=== PATIENT | male | born 1970 | race Caucasian/White ===

== ENCOUNTER 2016-09-22 10:40 | Emergency (ER) | payer MEDICAID ==
[~2016-09-22] VITALS: Ht 185.4 cm; Wt 102.6 kg
[~2016-09-22 10:40] MED LIST: ATOR10TA PO; DULO60CA7; GABA-827 PO; GABA100C PO; HYDR25TA6 PO; INSU100C5 SQ-INSULIN; INSU100V12 SQ; INSU100V8 SQ; LISI-167 PO; LISI-170 PO; METF10002 PO; METF500T4; NOVALOG 70/30; QUET150T; QUET50TA5 PO
[2016-09-22] MEDS ORDERED: INSU100V8 SQ (11:53)
[2016-09-22] MEDS ORDERED: GABA600T2 PO (11:53)
[2016-09-22] MEDS ORDERED: HYDROmorphone 1 MG/ML, 1ML IM PRN (12:00)
[2016-09-22] MEDS ORDERED: HYDROmorphone 1 MG/ML, 1ML ONE (12:19)
[2016-09-22 12:39] LABS: BLOOD UREA NITROGEN 15 mg/dL (7-18)
[2016-09-22 12:41] LABS: PATH.CAST-FLAG NOT PRESENT; SPERM-FLAG NOT PRESENT; SRC-FLAG NOT PRESENT; XTAL-FLAG NOT PRESENT; YLC-FLAG NOT PRESENT
[2016-09-22] MEDS ORDERED: INSULIN SINGLE DOSE, ER SQ-INSULIN ONE (12:55)
[2016-09-22] MEDS ORDERED: INSULIN REGULAR 100 UNITS/ML, 3ML VIAL SQ-INSULIN SCH (13:00)
[2016-09-22 13:14] VITALS: BP 127/80
== END 2016-09-22 13:16 | disposition home or self-care (01) ==
LOC: ED 13:15
DX: M54.9 Dorsalgia, unspecified (principal); M25.561 Pain in right knee; R73.9 Hyperglycemia, unspecified; J44.9 Chronic obstructive pulmonary disease, unspecified; I10 Essential (primary) hypertension; E78.5 Hyperlipidemia, unspecified; F17.210 Nicotine dependence, cigarettes, uncomplicated
CPT/HCPCS: 36415; 73502; 80048; 81001; 82040; 82550; 85025; 96372; 99285; J1170

== ENCOUNTER 2016-12-20 08:52 | Emergency (ER) | payer MEDICAID ==
[~2016-12-20] VITALS: Ht 185.4 cm; Wt 85.6 kg
[~2016-12-20 08:52] MED LIST changes: +GABA600T2 PO
[2016-12-20] MEDS ORDERED: SODIUM CHLORIDE 0.9%, 500ML IVBOLUS ONE (09:30)
[2016-12-20] MEDS ORDERED: SODIUM CHLORIDE FLUSH 10ML SYR IVF ONE (09:30)
[2016-12-20 10:14] LABS: BLOOD UREA NITROGEN 11 mg/dL (7-18)
[2016-12-20 10:15] LABS: HEMOGLOBIN 16.9 g/dL (13.7-18.0); WHITE BLOOD COUNT 8.2 x10^3/uL (3.4-10)
[2016-12-20] MEDS ORDERED: MAGNESIUM OXIDE 400 MG TABLET PO ONE (11:00)
[2016-12-20] MEDS ORDERED: INSULIN REGULAR 100 UNITS/ML, 3ML VIAL SQ-INSULIN ONE (11:00)
[2016-12-20] MEDS ORDERED: INSULIN REGULAR 100 UNITS/ML, 3ML VIAL ONE (11:27)
[2016-12-20 11:34] VITALS: BP 146/95
== END 2016-12-20 11:47 | disposition home or self-care (01) ==
LOC: ED 11:03
DX: E86.0 Dehydration (principal); E11.65 Type 2 diabetes mellitus with hyperglycemia; I10 Essential (primary) hypertension; J44.9 Chronic obstructive pulmonary disease, unspecified; E78.5 Hyperlipidemia, unspecified; Z79.4 Long term (current) use of insulin
CPT/HCPCS: 36415; 80048; 82010; 82040; 82962; 83735; 85025; 93005; 96360; 96361; 96372; 99285; J7040

== ENCOUNTER 2017-01-01 19:18 | Emergency (ER) | payer MEDICAID ==
[~2017-01-01] VITALS: Ht 185.4 cm; Wt 85.0 kg
[2017-01-01] MEDS ORDERED: SODIUM CHLORIDE 0.9% 1,000ML IVBOLUS ONE (19:30)
[2017-01-01] MEDS ORDERED: SODIUM CHLORIDE FLUSH 10ML SYR IVF ONE (19:30)
[2017-01-01 19:54] LABS: HEMATOCRIT 45.1 % (39.2-51.8); HEMOGLOBIN 15.1 g/dL (13.7-18.0); WHITE BLOOD COUNT 7.2 x10^3/uL (3.4-10)
[2017-01-01 20:07] LABS: BLOOD UREA NITROGEN 14 mg/dL (7-18)
[2017-01-01 20:10] LABS: ASPARTATE AMINO TRANSFERASE 13 U/L (15-37)
[2017-01-01 21:50] VITALS: BP 127/82
== END 2017-01-01 21:53 | disposition home or self-care (01) ==
LOC: MERGE 21:25 → ED 21:25
DX: S40.012A Contusion of left shoulder, initial encounter (principal); S50.02XA Contusion of left elbow, initial encounter; S70.02XA Contusion of left hip, initial encounter; E11.65 Type 2 diabetes mellitus with hyperglycemia; E78.5 Hyperlipidemia, unspecified; I10 Essential (primary) hypertension; W01.0XXA Fall on same level from slipping, tripping and stumbling without subsequent striking against object, initial encounter; Y93.89 Activity, other specified; Y92.488 Other paved roadways as the place of occurrence of the external cause; Y99.8 Other external cause status
CPT/HCPCS: 36415; 73030; 73080; 73502; 80053; 81001; 85025; 96360; 99285; J7030

== ENCOUNTER 2017-03-31 12:34 | Emergency (ER) | payer MEDICAID ==
[~2017-03-31] VITALS: Ht 185.4 cm; Wt 77.5 kg
[2017-03-31 12:35] VITALS: BP 105/69
[2017-03-31] MEDS ORDERED: ALBUTEROL/IPRATROPIUM 2.5MG/0.5MG, 3 ML NPPB ONE (13:00)
[2017-03-31 13:07] LABS: HEMOGLOBIN 16.6 g/dL (13.7-18.0); WHITE BLOOD COUNT 7.5 x10^3/uL (3.4-10)
[2017-03-31 13:20] LABS: BLOOD UREA NITROGEN 12 mg/dL (7-18)
[2017-03-31 13:47] LABS: IS PT STATUS REG ER OR PRE ER? YES
[2017-03-31] MEDS ORDERED: INSULIN REGULAR 100 UNITS/ML, 3ML VIAL ONE (14:19)
[2017-03-31] MEDS ORDERED: GABA-827 PO (14:25)
[2017-03-31] MEDS ORDERED: INSU300I SQ-INSULIN (14:27)
[2017-03-31] MEDS ORDERED: INSULIN REGULAR 100 UNITS/ML, 3ML VIAL SQ-INSULIN ONE (14:30)
[2017-03-31] MEDS ORDERED: SODIUM CHLORIDE FLUSH 10ML SYR IVF ONE (14:30)
[2017-03-31] MEDS ORDERED: SODIUM CHLORIDE 0.9% 1,000ML IVBOLUS ONE ×2 (14:30→15:30)
[2017-03-31] MEDS ORDERED: ALBUTEROL/IPRATROPIUM 2.5MG/0.5MG, 3 ML ONE (15:12)
== END 2017-03-31 17:14 | disposition home or self-care (01) ==
LOC: ED 14:20
DX: J44.1 Chronic obstructive pulmonary disease with (acute) exacerbation (principal); I10 Essential (primary) hypertension; E11.65 Type 2 diabetes mellitus with hyperglycemia; E78.5 Hyperlipidemia, unspecified; F17.210 Nicotine dependence, cigarettes, uncomplicated; Z79.4 Long term (current) use of insulin; Z59.0 Homelessness
CPT/HCPCS: 36415; 71010; 80048; 82010; 82040; 82962; 84484; 85025; 93005; 94640; 96360; 96361; 96372; 99285; J7030; J7620

== ENCOUNTER 2017-05-09 06:15 | Emergency (ER) | payer MEDICAID ==
[~2017-05-09] VITALS: Ht 185.4 cm; Wt 73.2 kg
[~2017-05-09 06:15] MED LIST changes: +INSU300I SQ-INSULIN
[2017-05-09] MEDS ORDERED: KETOROLAC 30 MG/1 ML IVPush ONE (07:00)
[2017-05-09] MEDS ORDERED: DIAZEPAM 5 MG TABLET PO ONE (07:00)
[2017-05-09] MEDS ORDERED: DIAZEPAM 5 MG TABLET ONE (07:01)
[2017-05-09] MEDS ORDERED: KETOROLAC 30 MG/1 ML ONE (07:01)
[2017-05-09 07:19] LABS: BASOPHILS # (AUTO) 0.06 x10^3/uL (0-0.1); BASOPHILS % (AUTO) 1 % (0-1); EOSINOPHILS # (AUTO) 0.12 x10^3/uL (0-0.4); EOSINOPHILS % (AUTO) 1 % (1-7); LYMPHOCYTES # (AUTO) 1.55 x10^3/uL (1-3.4); LYMPHOCYTES % (AUTO) 17 % (22-44); MD NO; MEAN CORPUSCULAR HEMOGLOBIN 32.3 pg (27.5-34.5); MEAN CORPUSCULAR HGB CONC 33.9 g/dL (33.2-36.2); MEAN CORPUSCULAR VOLUME 95.2 fL (81-97); MEAN PLATELET VOLUME 7.8 fL (7.4-10.4); MONOCYTES # (AUTO) 0.76 x10^3/uL (0.2-0.8); MONOCYTES % (AUTO) 8 % (2-9); NEUTROPHILS % (AUTO) 73 % (42-75); PLATELET COUNT 280 x10^3/uL (130-400); RED BLOOD COUNT 4.71 x10^6/uL (4.38-5.82); RED CELL DISTRIBUTION WIDTH 13.3 % (9.4-14.8)
[2017-05-09 07:29] LABS: ALANINE AMINOTRANSFERASE 12 U/L (12-78); ALBUMIN 2.6 g/dL (3.4-5.0); ANION GAP 14 mmol/L (5-15); CHLORIDE 95 mmol/L (98-107); CREATININE 0.99 mg/dL (0.7-1.3)
[2017-05-09] MEDS ORDERED: KETOROLAC 30 MG/1 ML IM ONE (07:30)
[2017-05-09 07:33] LABS: ALKALINE PHOSPHATASE 105 U/L (45-117); BILIRUBIN,TOTAL 0.5 mg/dL (0.2-1.0); TOTAL PROTEIN 6.9 g/dL (6.4-8.2); TROPONIN I < 0.015 ng/mL (0.000-0.045)
[2017-05-09] MEDS ORDERED: SODIUM CHLORIDE 0.9% 1,000ML IVBOLUS ONE (08:30)
[2017-05-09] MEDS ORDERED: SODIUM CHLORIDE FLUSH 10ML SYR IVF ONE (08:30)
[2017-05-09 10:17] VITALS: BP 101/74
== END 2017-05-09 10:19 | disposition home or self-care (01) ==
LOC: ED 10:13
DX: R07.89 Other chest pain (principal); E11.65 Type 2 diabetes mellitus with hyperglycemia; E78.5 Hyperlipidemia, unspecified; I10 Essential (primary) hypertension; J44.9 Chronic obstructive pulmonary disease, unspecified; F17.200 Nicotine dependence, unspecified, uncomplicated; E11.42 Type 2 diabetes mellitus with diabetic polyneuropathy
CPT/HCPCS: 36415; 71045; 80053; 82962; 83880; 84484; 85025; 93005; 96360; 96372; 99285; J1885; J7030

== ENCOUNTER 2017-08-04 11:38 | Emergency (ER) | payer MEDICAID ==
[~2017-08-04] VITALS: Ht 185.4 cm; Wt 70.0 kg
[2017-08-04] MEDS ORDERED: ONDANSETRON 2MG/ML, 2ML IVPush ONE (14:00)
[2017-08-04] MEDS ORDERED: PLEASE ENTER WEIGHT MC SCH (14:00)
[2017-08-04] MEDS ORDERED: SODIUM CHLORIDE 0.9% 1,000ML IVBOLUS ONE ×2 (14:00→15:00)
[2017-08-04 14:13] LABS: PH, VENOUS 7.333 pH (7.320-7.420)
[2017-08-04 14:14] LABS: FIO2 RA %
[2017-08-04 14:20] LABS: BASOPHILS # (AUTO) 0.04 x10^3/uL (0-0.1); BASOPHILS % (AUTO) 0 % (0-1); EOSINOPHILS % (AUTO) 1 % (1-7); LYMPHOCYTES # (AUTO) 2.55 x10^3/uL (1-3.4); LYMPHOCYTES % (AUTO) 23 % (22-44); MD NO; MEAN CORPUSCULAR HEMOGLOBIN 31.8 pg (27.5-34.5); MEAN CORPUSCULAR HGB CONC 33.4 g/dL (33.2-36.2); MEAN CORPUSCULAR VOLUME 95.1 fL (81-97); MEAN PLATELET VOLUME 8.1 fL (7.4-10.4); MONOCYTES # (AUTO) 0.59 x10^3/uL (0.2-0.8); MONOCYTES % (AUTO) 5 % (2-9); NEUTROPHILS # (AUTO) 7.83 x10^3/uL (1.8-6.8); NEUTROPHILS % (AUTO) 71 % (42-75); PLATELET COUNT 268 x10^3/uL (130-400); RED BLOOD COUNT 5.03 x10^6/uL (4.38-5.82)
[2017-08-04 14:29] LABS: CALCIUM 8.6 mg/dL (8.5-10.1); CHLORIDE 97 mmol/L (98-107)
[2017-08-04] MEDS ORDERED: ONDANSETRON 2MG/ML, 2ML ONE ×2 (14:32→15:03)
[2017-08-04 14:35] LABS: TOTAL PROTEIN 7.1 g/dL (6.4-8.2)
[2017-08-04 14:42] LABS: ALANINE AMINOTRANSFERASE 16 U/L (12-78); ALBUMIN 3.2 g/dL (3.4-5.0); CREATININE 1.15 mg/dL (0.7-1.3)
[2017-08-04 14:44] LABS: ALKALINE PHOSPHATASE 139 U/L (45-117); BILIRUBIN,TOTAL 0.6 mg/dL (0.2-1.0)
[2017-08-04 14:45] LABS: ANION GAP 10 mmol/L (5-15)
[2017-08-04] MEDS ORDERED: INSULIN REGULAR 100 UNITS/ML, 3ML VIAL ONE (14:52)
[2017-08-04] MEDS ORDERED: INSULIN REGULAR 100 UNITS/ML, 3ML VIAL SQ-INSULIN ONE (15:00)
[2017-08-04 15:16] LABS: ACETONE, SERUM Trace (10mg/dL) mg/dL (Negative)
[2017-08-04 16:15] VITALS: BP 101/56
== END 2017-08-04 17:03 | disposition home or self-care (01) ==
LOC: ED 13:41
DX: E11.65 Type 2 diabetes mellitus with hyperglycemia (principal); R11.2 Nausea with vomiting, unspecified; E11.42 Type 2 diabetes mellitus with diabetic polyneuropathy; J44.9 Chronic obstructive pulmonary disease, unspecified; I10 Essential (primary) hypertension; F17.200 Nicotine dependence, unspecified, uncomplicated
CPT/HCPCS: 36415; 80053; 82010; 82803; 85025; 93005; 96360; 96361; 96372; 99285; J7030

== ENCOUNTER 2017-09-21 21:59 | Emergency (ER) | payer MEDICAID ==
[~2017-09-21] VITALS: Ht 185.4 cm; Wt 75.7 kg
[2017-09-21 22:00] VITALS: BP 129/83
[2017-09-21] MEDS ORDERED: LIDOCAINE-MPF 1%, 5ML ONE (22:30)
[2017-09-21] MEDS ORDERED: LIDOCAINE-MPF 1%, 5ML INFIL ONE (22:30)
[2017-09-21] MEDS ORDERED: INSU100C5 SQ-INSULIN (23:29)
[2017-09-21] MEDS ORDERED: LINA5TAB PO (23:29)
== END 2017-09-21 23:33 | disposition home or self-care (01) ==
LOC: ED 23:05
DX: L02.411 Cutaneous abscess of right axilla (principal); E11.65 Type 2 diabetes mellitus with hyperglycemia; I10 Essential (primary) hypertension; E78.5 Hyperlipidemia, unspecified; J44.9 Chronic obstructive pulmonary disease, unspecified; F12.10 Cannabis abuse, uncomplicated; F17.200 Nicotine dependence, unspecified, uncomplicated
CPT/HCPCS: 10060; 82962; 99283

== ENCOUNTER 2017-09-23 20:49 | Emergency (ER) | payer MEDICAID ==
[~2017-09-23] VITALS: Ht 185.4 cm; Wt 75.0 kg
[~2017-09-23 20:49] MED LIST changes: +LINA5TAB PO
[2017-09-23 21:04] VITALS: BP 98/68
[2017-09-23] MEDS ORDERED: HYDROcodone/APAP 5/325 TABLET ONE (22:13)
[2017-09-23] MEDS ORDERED: HYDROcodone/APAP 5/325 TABLET PO ONE (22:30)
== END 2017-09-23 22:23 | disposition home or self-care (01) ==
LOC: ED 22:00
DX: L02.411 Cutaneous abscess of right axilla (principal); I10 Essential (primary) hypertension; J44.9 Chronic obstructive pulmonary disease, unspecified; E78.5 Hyperlipidemia, unspecified; E11.65 Type 2 diabetes mellitus with hyperglycemia; Z48.01 Encounter for change or removal of surgical wound dressing
CPT/HCPCS: 99282; 99283

== ENCOUNTER 2018-05-20 13:09 | Emergency (ER) | payer OTHER ==
[~2018-05-20] VITALS: Ht 185.4 cm; Wt 79.1 kg
[~2018-05-20 13:09] MED LIST changes: +ATOR20TA37 PO; +CEPH-368 PO; +CYCL-259 PO; +DOCU-131 PO; -GABA600T2 PO; +GABA600T7 PO; +IBUP-1222 PO; +INSU100I13 SQ-INSULIN; +INSU300I IJ; +INSU300I SQ; +LISI40TA PO; +METF500T17; +METF500T17 PO; -METF500T4; +NAPR-850 PO; +OXYC1TAB7 PO; +SULF1TAB24 PO
--- NOTE | 2018-05-20 14:33 | NUR ---
PT. ARRIVED BY [facility] AND WAS SENT TO THE LOBBY. PT. HAS C/O EXACERBATION OF CHRONIC BACK PAIN AFTER FALLING TODAY. PT. ALSO HAS NOT TAKEN HIS INSULIN IN 4 DAYS AND BLOOD SUGARS WERE 495 IN TRIAGE. PT. HAS THE HOB ELEVATED GREATER THAN 30 DEGREES. PT. WAS GIVEN BLANKETS FOR WARMTH. IV ACCESS ESTABLISHED. PT. IS RESTING WITH THE SIDERAILS UP X 2 AND THE CALL LIGHT IS IN PLACE. LUNGS ARE CTA. MM ARE PINK AND MOIST WITH PULSES +2 THROUGHOUT. PT. WALKED FROM THE WHEELCHAIR TO THE STRETCHER. PT. STATES PAIN WITH MOVEMENT. VITALS MONITORED.
[2018-05-20] MEDS ORDERED: HYDROcodone/APAP 5/325 TABLET ONE (14:57)
[2018-05-20] MEDS ORDERED: HYDROcodone/APAP 5/325 TABLET PO ONE (15:00)
--- NOTE | 2018-05-20 15:00 | NUR ---
TASK RN: MEDICATION ADMINISTERED PER EMAR. NO ACUTE DISTRESS NOTED. PT LAYING ON GURNEY WATCHING TELEVISION. NO NEEDS REQUESTED AT THIS TIME. Addendum: 05/20/18 at 1509 by LING FIRST CONTACT WITH PT.
--- NOTE | 2018-05-20 15:11 | NUR ---
TASK RN: PT AMBUALTORY WITH STEADY GAIT TO BATHROOM. PT REATTACHED TO ALL MONITORS..
--- NOTE | 2018-05-20 15:26 | NUR ---
TASK RN: PT TO IMAGING. BEDSIDE REPORT TO PRIMARY RNSHANAE.
[2018-05-20 15:34] LABS: BASOPHILS # (AUTO) 0.04 x10^3/uL (0-0.1); BASOPHILS % (AUTO) 0 % (0-1); EOSINOPHILS # (AUTO) 0.09 x10^3/uL (0-0.4); EOSINOPHILS % (AUTO) 1 % (1-7); LYMPHOCYTES # (AUTO) 2.74 x10^3/uL (1-3.4); LYMPHOCYTES % (AUTO) 26 % (22-44); MD NO; MEAN CORPUSCULAR HEMOGLOBIN 31.9 pg (27.5-34.5); MEAN CORPUSCULAR HGB CONC 34.4 g/dL (33.2-36.2); MEAN CORPUSCULAR VOLUME 92.8 fL (81-97); MEAN PLATELET VOLUME 7.4 fL (7.4-10.4); MONOCYTES # (AUTO) 0.59 x10^3/uL (0.2-0.8); MONOCYTES % (AUTO) 6 % (2-9); NEUTROPHILS # (AUTO) 7.13 x10^3/uL (1.8-6.8); NEUTROPHILS % (AUTO) 67 % (42-75); PLATELET COUNT 236 x10^3/uL (130-400); RED CELL DISTRIBUTION WIDTH 14.1 % (9.4-14.8)
[2018-05-20 15:43] LABS: ALBUMIN 2.8 g/dL (3.4-5.0); ANION GAP 5 mmol/L (5-15); CALCIUM 8.2 mg/dL (8.5-10.1); CHLORIDE 103 mmol/L (98-107); CREATININE 0.84 mg/dL (0.7-1.3)
--- NOTE | 2018-05-20 16:07 | NUR ---
PT. IS RESTING AT THIS TIME. NO CONCERNS.
[2018-05-20] MEDS ORDERED: SODIUM CHLORIDE 0.9% 1,000ML IVBOLUS ONE (16:30)
--- NOTE | 2018-05-20 17:19 | NUR ---
REPORT FROM SHANAE MATHIS, ASSUME CARE OF PT AT THIS TIME. DR KHAN IN TO RECHECK PT.
--- NOTE | 2018-05-20 18:01 | NUR ---
Patient/Caregiver given discharge instructions and they have confirmed that they understand the instructions. PT REQUESTING TO TALK TO SOCIAL WORK. SOCIAL WORK CALLED. PIV DISCONTINUED WITH TIP INTACT. PRESSURE DRESSING APPLIED.
[2018-05-20 18:02] VITALS: BP 137/80
--- NOTE | 2018-05-20 18:27 | NUR ---
PER SOCIAL WORK. PT REFUSED BUS PASS/TAXI. PT LEFT WITH ALL PERSONAL BELONGINGS.
== END 2018-05-20 18:29 | disposition home or self-care (01) ==
LOC: ED 16:11
DX: S29.012A Strain of muscle and tendon of back wall of thorax, initial encounter (principal); E11.65 Type 2 diabetes mellitus with hyperglycemia; Z72.9 Problem related to lifestyle, unspecified; Z75.9 Unspecified problem related to medical facilities and other health care; Z91.14 Patient's other noncompliance with medication regimen; Z63.8 Other specified problems related to primary support group; W01.0XXA Fall on same level from slipping, tripping and stumbling without subsequent striking against object, initial encounter; Y93.89 Activity, other specified; Y92.89 Other specified places as the place of occurrence of the external cause; Y99.8 Other external cause status
CPT/HCPCS: 36415; 72072; 72128; 80048; 82040; 82962; 85025; 96360; 96361; 99284; J7030